=== PATIENT | male | born 1950 | race Caucasian/White ===

== ENCOUNTER 2022-10-16 09:21 | Emergency (ER) | payer MEDICARE, SELFPAY ==
[2022-10-16 09:19] VITALS: BP 105/64; PULSE 94; RESP 18; TEMP 37; O2SAT 100
[2022-10-16 09:46] VITALS: BP 97/75; O2SAT 100
[2022-10-16 10:02] LABS: Basophils Absolute Auto 0.1 K/mm3 (0.0-0.1); Basophils Percent Auto 0.6 % (0.2-1.2); Eosinophils Absolute Auto 0.2 K/mm3 (0-0.3); Hematocrit 35.9 % (42.0-52.0); Immature Granulocyte Absolute 0.03 K/mm3 (0.00-0.031); Immature Granulocyte Percent A 0.3 % (0-0.5); Lymphocytes Absolute Auto 1.55 K/mm3 (0.9-3.2); Lymphocytes Percent Auto 17.5 % (18.3-44.2); Mean Corpuscular HGB Conc 30.6 g/dl (32-36); Mean Platelet Volume 10.9 fl (7.4-10.4); Monocytes Absolute Auto 0.8 K/mm3 (0.1-0.6); Monocytes Percent Auto 9.1 % (2.6-8.5); Neutrophils Absolute Auto 6.2 K/mm3 (1.3-6.7); Neutrophils Percent Auto 70.5 % (45.5-73.1); Platelet Count Result 168 k/mm3 (150-375); Red Blood Count 4.08 M/mm3 (4.6-6.20); Red Cell Distribution Width 15.1 % (11.5-14.5); White Blood Count 8.9 K/mm3 (4.5-10.0)
[2022-10-16 10:15] LABS: Alanine Aminotransferase 16 U/L (6-50); Albumin Level 2.9 g/dL (3.5-5.1); Alkaline Phosphatase 68 U/L (38-126); Anion Gap 5 mmol/L (8-16); Aspartate Amino Transferase 22 U/L (17-59); Bilirubin,Total 0.5 mg/dL (0.2-1.3); Blood Urea Nitrogen 16 mg/dL (9-20); Calcium 7.8 mg/dL (8.4-10.2); Carbon Dioxide 30 mmol/L (22-30); Chloride 102 mmol/L (98-107); Estimated Glomerular Filt Rate > 60; Glucose 98 mg/dL (65-110); Potassium 4.3 mmol/L (3.4-5.0); Sodium 137 mmol/L (137-145)
[2022-10-16 10:16] VITALS: BP 115/75; O2SAT 100
[2022-10-16 10:17] LABS: INR 1.1; Prothrombin Time 13.7 Seconds (11.1-14.7)
--- NOTE | 2022-10-16 10:28 | ED.GIBLEED ---
HPI - GI Bleed General Chief complaint: GI Bleed Stated complaint: BLOOD IN STOOL Time Seen by Provider: 10/16/22 09:29 History of Present Illness HPI Narrative: Patient sent here from care home due to their concern that they saw some blood in his diaper, patient denies any complaints, he has no nausea or vomiting, abdominal pain or rectal pain. No lightheadedness or shortness of breath. Not on blood thinners. Related Data Allergies Allergy/AdvReac Type Severity Reaction Status Date / Time No Known Allergies Allergy Verified 10/16/22 09:32 Review of Systems Review of Systems: CONST: No fever. HEENT: No sore throat C/V: No chest pain RESP: No cough GI: Possible rectal bleeding : No dysuria. M/S: No joint pain. SKIN: No rash. NEURO: [No headache or focal numbness or weakness] PSYCH: [No depression] [facility] Past Medical History Medical History (Updated 10/16/22 @ 12:47 by Sharon Madrid MD) Hemorrhoids Exam Narrative: EXAMINATION OF ORGAN SYSTEMS/BODY AREAS: Constitutional: Vital signs per nursing GENERAL:[No acute distress, non-toxic appearing.] HEAD: Normal with no signs of head trauma. EYES: EOMI, conjunctiva normal ENT: Hearing grossly intact LUNGS: Nonlabored breathing. HEART: [Regular rate and rhythm] ABD: [Soft], [nontender to palpation] RECTAL: External hemorrhoids without any tenderness; grossly brown stool; hemoccult negative EXT: Normal range of motion SKIN: [No rashes or lesions.] NEURO: [Alert and oriented x 3. No gross focal sensory or strength deficits.] PSYCH: Normal affect Course Vital Signs Vital signs: Vital Signs Temperature 98.6 F 10/16/22 09:19 Pulse Rate 94 10/16/22 09:19 Respiratory Rate 18 10/16/22 09:19 Blood Pressure 105/64 10/16/22 09:19 Pulse Oximetry 100 10/16/22 09:19 Oxygen Delivery Nasal Cannula 10/16/22 09:19 Oxygen Flow Rate 4 10/16/22 09:19 Temperature 98.6 F 10/16/22 09:19 Pulse Rate 94 10/16/22 09:19 Respiratory Rate 18 10/16/22 09:19 Blood Pressure 102/64 10/16/22 10:31 Pulse Oximetry 100 10/16/22 10:16 Oxygen Delivery Nasal Cannula 10/16/22 09:19 Oxygen Flow Rate 4 10/16/22 09:19 MDM - GI Bleed MDM Narrative Medical decision making narrative: 72-year-old male presenting with possible rectal bleeding, vital signs stable here, he is well-appearing on exam, soft, nontender abdomen, I did perform a rectal exam and noted grossly brown stool, this is Hemoccult negative, I will obtain basic work-up to ensure stable hemoglobin and no issues with coagulation. These are within acceptable limits, patient has not had any further episodes of rectal bleeding in the emergency room, continues to be well-appearing here, I do feel he is stable for discharge. Discussed with patient and family at bedside and they are very comfortable with this plan, with return precautions and follow-up to GI as needed Lab Data 10/16/22 09:56 10/16/22 09:56 Labs: Lab Results 10/16/22 10/16/22 10/16/22 Range/Units 09:56 09:56 09:56 WBC 8.9 (4.5-10.0) K/mm3 RBC 4.08 L (4.6-6.20) M/mm3 Hgb 11.0 L (14.0-18.0) g/dL Hct 35.9 L (42.0-52.0) % MCV 88.0 (80-100) fl MCH 27.0 (26-34) pg MCHC 30.6 L (32-36) g/dl RDW 15.1 H (11.5-14.5) % Plt Count 168 (150-375) k/mm3 MPV 10.9 H (7.4-10.4) fl Immature Gran % (Auto) 0.3 (0-0.5) % Neut % (Auto) 70.5 (45.5-73.1) % Lymph % (Auto) 17.5 L (18.3-44.2) % Gregory % (Auto) 9.1 H (2.6-8.5) % Eos % (Auto) 2.0 (0-4.4) % Baso % (Auto) 0.6 (0.2-1.2) % Lymph # (Auto) 1.55 (0.9-3.2) K/mm3 Gregory # (Auto) 0.8 H (0.1-0.6) K/mm3 Eos # (Auto) 0.2 (0-0.3) K/mm3 Baso # (Auto) 0.1 (0.0-0.1) K/mm3 Abs Immat Gran (auto) 0.03 (0.00-0.031) K/mm3 Absolute Neuts (auto) 6.2 (1.3-6.7) K/mm3 Absolute Nucleated RBC 0.0 (0.0-0.012) K/mm3 Nucleated RBC % 0.0 (0.0-0.2) % PT 13.7
[2022-10-16 10:31] VITALS: BP 102/64
== END 2022-10-16 11:06 ==
PROVIDERS: Emergency Provider Emergency Medicine
DX: K64.9 Unspecified hemorrhoids (principal)
CPT/HCPCS: 36415; 80053; 85025; 85610; 85730; 99283

== ENCOUNTER 2022-10-22 15:07 | Inpatient (IN) | payer MEDICARE, SELFPAY ==
[2022-10-22] VITALS (21 sets, daily range): BP systolic 99–132; BP diastolic 69–88; PULSE 97–119; RESP 14–26; TEMP 36.6–37.2; O2SAT 94–100; BMI 26.2; BMI 26.7
--- NOTE | ~2022-10-22 | US_ITS ---
EXAMINATION: US venous doppler [facility] DATE: 10/23/2022 09:11 INDICATION: edema . TECHNIQUE: Grayscale images without and with compression and Doppler images of the bilateral lower ex tremity veins were obtained. COMPARISON: None FINDINGS: The right common femoral vein, profunda (deep) femoral vein, femoral vein, popliteal vein, peroneal v ein, posterior tibial veins, gastrocnemius vein, and greater saphenous vein are patent. The left common femoral vein, profunda femoral vein, femoral vein, popliteal vein, peroneal vein, pos terior tibial veins, gastrocnemius vein, and greater saphenous vein are patent. IMPRESSION: 1. Patent bilateral lower extremity veins. No evidence of deep venous thrombosis. Reviewed, dictated and finalized at location K. STILL OPERATOR IMPRESSION: 1. Patent bilateral lower extremity veins. No evidence of deep venous thrombos is.
--- NOTE | ~2022-10-22 | CT_ITS ---
EXAMINATION: CTA chest PE abdomen pel DATE: 10/22/2022 16:56 INDICATION: Shortness of breath, hypoxia and tachycardia. TECHNIQUE: Computed tomography (CT) pulmonary angiogram of the chest was performed with 100 mL Omnipa que-350 intravenous contrast. Additional 3D reconstructions utilizing coronal maximum intensity proje ction (MIP) were performed. CT of the abdomen and pelvis was performed with intravenous contrast util izing the same contrast bolus following a short delay. Automated exposure control and iterative recon struction technique were employed. The dose-length product was 1535.33 mGy-cm. COMPARISON: None FINDINGS: Chest: Good but suboptimal contrast opacification of the pulmonary arteries. There is mild streak artifact f rom dense contrast in the superior vena cava and right atrium. Mild to moderate scattered respiratory motion artifact most prominent at the lower lung zones which decreases sensitivity in some of the sm aller subsegmental pulmonary arteries. No pulmonary embolism. Moderate lower lung predominant emphyse ma. Small bilateral calcified pulmonary nodules along with calcified bilateral hilar and mediastinal lymph nodes consistent with old granulomatous disease. No pneumonia, pulmonary edema or pleural effus ion. Heart size is normal. Atherosclerotic coronary artery calcification. No pericardial effusion. Fu siform ascending thoracic aortic aneurysm measuring up to 4.6 cm in maximal diameter. No pathological ly enlarged thoracic lymphadenopathy. Mild thoracic spondylosis. Abdomen/pelvis: A few small low-attenuation hepatic cysts the largest measuring 12 mm. A few small hepatic and spleni c calcific lesions consistent with old granulomatous disease. This includes at a few calcified granul omata within 3 splenules along the caudal margin of the spleen. Gallbladder, pancreas, bilateral adre nal glands and right kidney are normal. 2.1 cm exophytic left renal cyst. Small bowel and appendix ar e normal. There is mild colonic diverticulosis with a sigmoid predominance. There is wall thickening and surrounding inflammatory stranding along a significant portion of the sigmoid colon which could b e related to diverticulitis but extends slightly further than typical and differential would also inc lude a focal colitis. There is suggestion of a 2 cm intraluminal enhancing polypoid lesion within the affected segment of sigmoid colon which also raises concern for potential malignancy. Bladder is nor mal. Bilateral small fat-containing inguinal hernias. Small umbilical hernia containing fat and a min imal amount of ascites. Additional trace amount of ascites in the pelvis. No abscess or free intraper itoneal gas. No pathologically enlarged abdominal or pelvic lymphadenopathy. Mild to moderate degener ative skeletal changes in the spine and bilateral hips and sacroiliac joints. IMPRESSION: 1. No pulmonary embolism or other acute cardiopulmonary disease. 2. Moderate emphysema. 3. Wall thickening and inflammatory scarring along the sigmoid colon which could be due to diverticul itis or focal colitis. There is however also suggestion enhancing intraluminal polypoid lesion which raises concern for malignancy. Consider further evaluation with colonoscopy when clinically appropria te. 4. Small fat-containing umbilical and bilateral inguinal hernias. Reviewed, dictated and finalized at location A. S DRAPER IMPRESSION: 1. No pulmonary embolism or other acute cardiopulmonary disease. 2. Moderate emphysema. 3. Wall thickening and inflammatory scarring along the sigmoid colon which coul d be due to diverticulitis or focal colitis. There is however also suggestion e nhancing intraluminal polypoid lesion which raises concern for malignancy. Cons ider further evaluation with colonoscopy when cli
--- NOTE | ~2022-10-22 | XR_ITS ---
XR chest 1V portable DATE: 10/23/2022 09:49 INDICATION: Labored breathing TECHNIQUE: Portable upright AP chest on October 23, 2022 at 0944 hours COMPARISON: October 22, 2022 CTA chest abdomen pelvis FINDINGS: Normal heart size. Mild aortic tortuosity and calcification. No hilar or mediastinal enlarg ement. No pulmonary infiltrate or consolidation, pleural effusion or pulmonary vascular congestion or pneumo thorax is detected. IMPRESSION: No active cardiopulmonary disease Reviewed, dictated and finalized at location A. SUPPRESSION CAPTAIN
--- NOTE | 2022-10-22 15:18 | ECG_ITS ---
Measurements Intervals [place] Rate: 115 P: 72 OH: 155 QRS: -72 QRSD: 88 T: 67 QT: 313 QTc: 433 Interpretive Statements SINUS TACHYCARDIA LOW QRS VOLTAGE [QRS DEFLECTION < 0.5/1.0 mV IN LIMB/CHEST LEADS] LEFT AXIS DEVIATION BASELINE ARTIFACT NO PREVIOUS ECG AVAILABLE FOR COMPARISON Electronically Signed On 10-23-2022 8:18:14 PRICE ECONOMIST by Phoebe Earl M.D.
[2022-10-22 15:39] LABS: Basophils Absolute Auto 0.1 K/mm3 (0.0-0.1); Basophils Percent Auto 0.8 % (0.2-1.2); Eosinophils Absolute Auto 0.3 K/mm3 (0-0.3); Hematocrit 39.5 % (42.0-52.0); Immature Granulocyte Absolute 0.04 K/mm3 (0.00-0.031); Immature Granulocyte Percent A 0.4 % (0-0.5); Lymphocytes Absolute Auto 2.47 K/mm3 (0.9-3.2); Mean Corpuscular HGB Conc 30.4 g/dl (32-36); Mean Corpuscular Hemoglobin 27.3 pg (26-34); Mean Corpuscular Volume 89.8 fl (80-100); Mean Platelet Volume 10.8 fl (7.4-10.4); Monocytes Absolute Auto 0.9 K/mm3 (0.1-0.6); Monocytes Percent Auto 8.7 % (2.6-8.5); Neutrophils Absolute Auto 6.5 K/mm3 (1.3-6.7); Neutrophils Percent Auto 63.1 % (45.5-73.1); Platelet Count Result 145 k/mm3 (150-375); White Blood Count 10.3 K/mm3 (4.5-10.0)
[2022-10-22 15:50] LABS: Alanine Aminotransferase 17 U/L (6-50); Albumin Level 2.9 g/dL (3.5-5.1); Alkaline Phosphatase 67 U/L (38-126); Anion Gap 2 mmol/L (8-16); Aspartate Amino Transferase 25 U/L (17-59); Bilirubin,Total 0.6 mg/dL (0.2-1.3); Blood Urea Nitrogen 18 mg/dL (9-20); Calcium 7.2 mg/dL (8.4-10.2); Carbon Dioxide 34 mmol/L (22-30); Chloride 100 mmol/L (98-107); Estimated CRCL calculation 55 ml/min; Estimated Glomerular Filt Rate > 60; Glucose 101 mg/dL (65-110); Lipase 85 U/L (23-300); Potassium 3.9 mmol/L (3.4-5.0); Sodium 136 mmol/L (137-145)
--- NOTE | 2022-10-22 15:58 | ED.GENADULT ---
HPI - General Adult General Chief complaint: Nausea/Vomiting/Diarrhea Stated complaint: Diarrhea/Dehydration Time Seen by Provider: 10/22/22 15:44 Source: patient, family and old records reviewed Mode of arrival: ambulatory Limitations: no limitations History of Present Illness HPI narrative: Patient is a 72-year-old male, with PMHx of dementia, who presents to the ED with report of diarrhea. Patient is currently residing at [facility]. Daughter at bedside assisted in providing information. She reports patient has had profuse watery diarrhea for the last 3 weeks. It has gotten to the point that it is affecting his daily life and patient has become very dehydrated and weak. She reports he has had numerous episodes per day. Has been intermittent rectal bleeding over the last 3 weeks, at times bright red, at times dark clots. Patient does have a history of hemorrhoids, but denies significant pain with bowel movements. Daughter reports the [facility] facility attempted to perform a stool culture, but they never heard the results of this. They were concerned for C. difficile. Patient denies recent antibiotics or foreign travel. Patient reports some lower abdominal pain, intermittent nausea, denies vomiting. Denies fever. Patient has also had increased difficulty breathing over the last week. Patient chronically wears 4 L nasal cannula. He has not had to increase this over the last week, but it was increased in August from 3 L when he was hospitalized. He denies any chest pain. Denies cough or congestion. Related Data Allergies Allergy/AdvReac Type Severity Reaction Status Date / Time No Known Allergies Allergy Verified 10/16/22 09:32 Review of Systems Review of Systems: CONSTITUTIONAL: Denies fever, chills, or sweats. ENT: Denies rhinorrhea, congestion, sore throat. CARDIOVASCULAR: Denies chest pain. RESPIRATORY: See HPI. GASTROINTESTINAL: See HPI. GENITOURINARY: Denies dysuria or hematuria. All systems reviewed & are unremarkable except as noted in HPI and below PMFSH Past Medical History Medical History (Updated 10/22/22 @ 20:01 by Estefania Lloyd PA-C) Chronic obstructive pulmonary disease Chronic respiratory failure with hypoxia, on home oxygen therapy Hemorrhoids Surgical History Surgical History (Updated 10/22/22 @ 18:35 by Estefania Lloyd PA-C) No pertinent past surgical history Social History Social History (Updated 10/22/22 @ 18:35 by Estefania Lloyd PA-C) Smoking status: Former smoker Exam Narrative: GENERAL: Elderly, non-toxic, in no acute distress. HEAD: Normocephalic, atraumatic. NECK: Supple. No adenopathy, no masses. RESPIRATORY: Airway patent, respirations mildly labored. Pursed lip breathing. On 4 L nasal cannula. Clear to auscultation bilaterally. No focal lung sounds. CARDIOVASCULAR: Tachycardic with regular rhythm without murmurs, rubs, or gallops. Peripheral pulses 2+ and equal bilaterally. ABDOMINAL: Soft, tenderness throughout epigastric region, left lower quadrant, right lower quadrant, no rebound, nondistended, no hepatosplenomegaly. Normoactive BS. RECTAL: Small external hemorrhoid noted. No signs of thrombosis. Normal tone. Stool slightly yellow and malodorous. Guaiac negative. MUSCULOSKELETAL: Moves all extremities. Strength/ROM intact without gross deformities. SKIN: Warm, dry, normal color. No rashes. NEURO: A&O X1, confused. Speech clear. Cranial nerves II-XII grossly intact. Steady gait. No ataxic movements. PSYCHIATRIC: Becomes easily agitated. Normal interaction. Course Vital Signs Vital signs: Vital Signs Temperature 97.8 F 10/22/22 15:14 Pulse Rate 119 H 10/22/22 15:14 Respiratory Rate 26 H 10/22/22 15:14 Blood Pressure 111/70 10/22/22 15:14 Pulse Oximetry 94 10/22/22 15:14 Oxygen Delivery Nasal Cannula 10/22/22 15:14 Oxygen Flow Rate 4 10/22/22 15:14 Temperature 97.8 F 10/22/22 15:1
[2022-10-22 16:27] LABS: Alveolar/Arterial O2 Gradient 62.8 mmHg; Base Excess ABG 5.2 mEq/l (+/-2.0); Carboxyhemoglobin 0.7 % THb (0-2.0); Fractional Inspired Oxygen 28 %; HCO3 ABG 29.1 mEq/l (22.0-26.0); Methemoglobin ABG 0.1 %THb (0-1.5); Oxygen Content ABG 17.1 %vol (16.0-22.0); Oxygen Saturation ABG 97.3 % (95.0-100.0); PCO2 ABG 40.1 mmHg (35.0-45.0); PO2 ABG 89.5 mmHg (80.0-100.0); Reduced Hemoglobin 3.2 %THb (0-5.0); Total Hemoglobin 12.6 g/dL (12.0-18.0); pH ABG 7.478 (7.350-7.450)
[2022-10-22 16:29] LABS: Device NASAL CANNULA; Modified Allen's Test Pass; Site Drawn LEFT BRACHIAL
[2022-10-22 17:44] LABS: Appearance Urine Clear (Clear); Bilirubin Urine Negative (Negative); Blood Urine Negative (Negative); Color Urine Yellow (Yellow); Glucose Urine UA Negative (Negative); Ketones Urine Negative (Negative); Leukocyte Esterase Ur Negative LEU/UL (Negative); Nitrate Urine Negative (Negative); Protein Urine Negative (Negative); pH Urine 6.5 (5.0-9.0)
[2022-10-22 17:47] LABS: Add Urine Microscopic? NO
[2022-10-22 18:22] LABS: NT Pro B Type Natriuretic Pept 280 pg/mL (19.9-100); Troponin I < 0.012 ng/mL (0.000-0.034)
[2022-10-22] MEDS: SODIUM CHLORIDE 0.9% IV 1,000 ML 999 ML IV CONT ×2 (18:31→18:32)
[2022-10-22 19:04] LABS: Lactic Acid Reflex 0.8 mmol/L (0.7-2.0)
[2022-10-22] MEDS: CALCIUM GLUC 1,000 MG/NS 50 ML 1,000 MG/50 ML BAG 100 MG IVPB (19:25)
[2022-10-22 19:28] LABS: Influenza A QL RT-PCR Negative (Negative); Influenza B QL RT-PCR Negative (Negative); SARS-CoV-2 RNA PCR Negative
--- NOTE | 2022-10-22 19:30 | PM.IMHP ---
H&P: HPI History of Present Illness Date/Time: 10/22/22 19:30 Chief Complaint: Diarrhea, possible dehydration. Narrative: This is a 72-year-old male with dementia, congestive heart failure, hypertension, COPD on chronic oxygen, diverticulosis, depression, and anxiety who presented to the emergency department from assisted living facility for evaluation of diarrhea and with concerns for dehydration. The patient is not a reliable historian and all of the following information was obtained via a review of his electronic medical records as well as discussions with staff. He has never been seen at this facility and his daughter has already left and I have not been able to get a hold of her. According to the triage note he has been having diarrhea for over 2 weeks and in fact he was seen emergency department on 10/16/2022 for evaluation of possible blood in his stool. Labs and vital signs were stable and his stool was Hemoccult negative on rectal exam. Since that time he continues to have profuse watery diarrhea and he has become more and more weak. He occasionally has difficulties holding his stool and it is frustrating and embarrassing to him. He has also noticed bright red blood in the toilet but not with every bowel movement. He denies fever, chills, sweats, and abdominal pain. He was afebrile on arrival to the emergency department. He has had some softer blood pressures at the lower end of normal but they have remained stable. He is tachycardic but that is improving with hydration. Labs were significant for a WBC of 10.3, hemoglobin 12.0, sodium 136, potassium 3.9, carbon dioxide 34, BUN 18, creatinine 1.10, lactic acid 0.8, total protein 6.0, albumin 2.9. A CT of the chest, abdomen, and pelvis was done to evaluate the diarrhea and shortness of breath which was evident on exam though it later came to fruition that he has chronic conversational dyspnea and pursed lip breathing. No pulmonary embolism or acute cardiopulmonary disease was noted. There was wall thickening inflammatory scarring along the sigmoid colon which could be diverticulitis or focal colitis however there are some findings that are suggestive of a polypoid lesion which raises concern for malignancy. He has been started on Zosyn for suspected colitis and he is being admitted in this setting for further treatment and GI consultation. Review of Systems Review of Systems: Unable to obtain accurately given his dementia. He does specifically deny fever, chills, sweats, chest pain, shortness a breath, and abdominal pain. [facility] Past Medical History Medical History (Updated 10/24/22 @ 14:28 by Rosanne Amaral PA-C) Chronic obstructive pulmonary disease Chronic respiratory failure with hypoxia, on home oxygen therapy Congestive heart failure Dementia Depression with anxiety Hemorrhoids Hyperlipidemia Hypertension Surgical History Surgical History No pertinent past surgical history Family History Family History Father Lung cancer Mother Liver cancer Colon cancer Social History Social History (Updated 10/24/22 @ 14:28 by Rosanne Amaral PA-C) Social History: Surrogate medical decision maker: Fátima Osman, eddie. Code status: Full code. Smoking status: Former smoker Alcohol intake: never Substance use: never Additional living arrangements comments: Memory care. Spiritual care concerns: No Meds Home Medications and Allergies Home Medications Medication Instructions Recorded Confirmed Type allopurinol 100 mg tablet 50 mg PO DAILY 10/22/22 10/22/22 History arformoterol 15 mcg/2 mL solution 15 mcg inhalation DAILY 10/22/22 10/22/22 History for nebulization (Brovana) budesonide 0.5 mg/2 mL suspension 0.5 mg inhalation BID 10/22/22 10/22/22 History for nebulization cetirizine 10 mg tablet (Zyrtec) 10 mg PO DAILY 10/22/2210/13
[2022-10-23] VITALS (13 sets, daily range): BP systolic 115–131; BP diastolic 69–88; PULSE 86–110; RESP 16–22; TEMP 36.6–36.8; O2SAT 94–100
[2022-10-23 05:46] LABS: Hematocrit 34.7 % (42.0-52.0); Hemoglobin 10.3 g/dL (14.0-18.0); Immature Platelet Fraction Pct 4.7 % (0.9-11.2); Mean Corpuscular HGB Conc 29.7 g/dl (32-36); Mean Corpuscular Hemoglobin 26.2 pg (26-34); Mean Corpuscular Volume 88.3 fl (80-100); Mean Platelet Volume 10.7 fl (7.4-10.4); Platelet Count Result 102 k/mm3 (150-375); Red Blood Count 3.93 M/mm3 (4.6-6.20); Red Cell Distribution Width 15.1 % (11.5-14.5); White Blood Count 8.9 K/mm3 (4.5-10.0)
[2022-10-23 05:54] LABS: Alanine Aminotransferase 16 U/L (6-50); Albumin Level 2.6 g/dL (3.5-5.1); Alkaline Phosphatase 64 U/L (38-126); Anion Gap 0 mmol/L (8-16); Aspartate Amino Transferase 22 U/L (17-59); Bilirubin,Total 0.5 mg/dL (0.2-1.3); Blood Urea Nitrogen 15 mg/dL (9-20); Calcium 7.3 mg/dL (8.4-10.2); Carbon Dioxide 31 mmol/L (22-30); Chloride 103 mmol/L (98-107); Estimated CRCL calculation 55 ml/min; Estimated Glomerular Filt Rate > 60; Glucose 79 mg/dL (65-110); Potassium 3.7 mmol/L (3.4-5.0); Sodium 134 mmol/L (137-145)
[2022-10-23] MEDS: BUDESONIDE RESPULE NEB 0.5 MG/2 ML AMP INHALATION ×2 (07:14→19:45)
[2022-10-23 08:02] LABS: Toxigenic C. Diff POSITIVE (NEGATIVE)
--- NOTE | 2022-10-23 08:02 | PM.IMPN ---
Progress Note: A&P Assessment and Plan (1) Clostridium difficile colitis: Code(s): A04.72 - Enterocolitis due to Clostridium difficile, not specified as recurrent Status: Acute Assessment and Plan: Patient presented with watery, loose stool for approximately 3 weeks. He tested positive for cdiff on admission. CT abd/pelvis shows wall thickening and inflammatory scarring along the sigmoid colon suspicious for focal colitis versus diverticulitis. He was started on Zosyn IV therapy for concerns of diverticulitis/colitis. Stop Zosyn 10/23/22 due to cdiff+ Start Vancomycin 125 mg PO Q6 hours x 10 days. Isolation precautions. Start banatrol plus supplement. Clear liquid diet advance as tolerated to low residue diet Continue IV fluids until taking good PO. (2) Colonic mass: Code(s): K63.89 - Other specified diseases of intestine Status: Acute Assessment and Plan: CT abd/pelvis with enhancing intraluminal polypoid lesion in the sigmoid colon concerning for malignancy. He will need colonoscopy when cdiff infection resolved. He is refusing at this time. (3) COPD (chronic obstructive pulmonary disease): Code(s): J44.9 - Chronic obstructive pulmonary disease, unspecified Status: Chronic Assessment and Plan: Acute on chronic COPD. c/o increased shortness of breath and wheezing. No sputum at this time. Continue duonebs Q6 hrs and budesonide nebs Q12 hours. Hold steroids and antibiotics for now given above. Chest x-ray negative for acute pulmonary disease. (4) Chronic respiratory failure with hypoxia, on home O2 therapy: Code(s): J96.11 - Chronic respiratory failure with hypoxia; Z99.81 - Dependence on supplemental oxygen Status: Chronic Assessment and Plan: chronic, on 4L home O2 NC. No increased supplemental O2 needs. (5) Generalized weakness: Code(s): R53.1 - Weakness Status: Acute Assessment and Plan: Secondary to cdiff colitis and dehydration. PT/OT consulted. (6) Encephalopathy: Code(s): G93.40 - Encephalopathy, unspecified Status: Chronic Assessment and Plan: Daughter reports increased forgetfulness, anxiety and memory loss since July/August of last year. Check B12, folate, vitamin D, and TSH with reflex. Plan CODE STATUS: FULL CODE Discharge disposition: He will likely need SNF placement at discarge. Time Spent With Patient Time: 35 minutes time spent reviewing medical chart, lab work, imaging, patient assessment, and developing treatment plan. All patient and family questions answered to the best of my ability. Subjective Date/time seen: 10/23/22 08:02 Patient is a 72-year-old male with dementia, congestive heart failure, hypertension, COPD on chronic oxygen, diverticulosis, depression, and anxiety presented to the emergency department from assisted living facility for evaluation of diarrhea x 3 weeks and with concerns for dehydration.?He is cdiff positive. Patient found lying in bed. He was short of breath early this morning and nursing reported observation of abdominal breathing. He wears 4L chronic home oxygen. He reports his breathing is better after nebulizer treatments. No cough or sputum. His abdomen is mildly tender and has had 1 stool since admission. Review of Systems Review of Systems: All systems reviewed & are unremarkable except as noted in HPI and below Exam Narrative: General: Moderately ill-appearing older adult male lying in bed. O2 4L NC. HEENT: Normocephalic. PERRL, EOMI. Sclera anicteric. mucous membranes pink and dry. Tongue midline. Neck: Supple. No JVD. Respiratory: Occasional pursed lip breathing and conversational dyspnea. Lung sounds are diminished throughout without wheezing noted. No intercostal muscle use. Cardiovascular: Normal S1-S2 regular rate and rhythm. No murmurs, gallops or rubs. Gastrointestinal: Abdomen is soft and protube
[2022-10-23] MEDS: LORATADINE 10 MG TABLET PO (09:40)
[2022-10-23] MEDS: allopurinoL 50 MG TABLET PO (09:40)
[2022-10-23] MEDS: ROSUVASTATIN 10 MG TABLET 20 MG PO (09:40)
[2022-10-23] MEDS: MONTELUKAST SODIUM 10 MG TABLET PO (09:40)
[2022-10-23] MEDS: VANCOMYCIN ORAL 125 MG/2.5 ML SYRUP PO ×3 (13:16→22:58)
--- NOTE | 2022-10-23 15:35 | PCOTNOTE ---
Attempted occupational therapy evaluation, patient was very confused and refused to engage in therapy at this time. Daughter was not present and RN reported he typically does better when she is in the room. Following.
[2022-10-23] MEDS: ALBUTEROL SULFATE NEB 2.5 MG/3 ML INH INHALATION (19:45)
[2022-10-23] MEDS: IPRATROPIUM BR 0.02% INH SOLN 0.5 MG/2.5 ML VIAL INHALATION (19:45)
[2022-10-23] MEDS: LORazepam (*CRX) 0.5 MG TABLET PO (20:51)
[2022-10-24] VITALS (15 sets, daily range): BP systolic 97–125; BP diastolic 60–73; PULSE 83–96; RESP 16–20; TEMP 36.5–37.1; O2SAT 94–100
[2022-10-24] MEDS: VANCOMYCIN ORAL 125 MG/2.5 ML SYRUP PO ×3 (05:06→17:46)
[2022-10-24 05:26] LABS: Basophils Absolute Auto 0.1 K/mm3 (0.0-0.1); Basophils Percent Auto 0.8 % (0.2-1.2); Eosinophils Absolute Auto 0.3 K/mm3 (0-0.3); Hematocrit 35.6 % (42.0-52.0); Hemoglobin 10.7 g/dL (14.0-18.0); Immature Granulocyte Absolute 0.03 K/mm3 (0.00-0.031); Immature Granulocyte Percent A 0.4 % (0-0.5); Lymphocytes Absolute Auto 1.72 K/mm3 (0.9-3.2); Lymphocytes Percent Auto 23.1 % (18.3-44.2); Mean Corpuscular HGB Conc 30.1 g/dl (32-36); Mean Corpuscular Hemoglobin 26.8 pg (26-34); Mean Corpuscular Volume 89.2 fl (80-100); Mean Platelet Volume 10.9 fl (7.4-10.4); Monocytes Absolute Auto 0.7 K/mm3 (0.1-0.6); Monocytes Percent Auto 9.7 % (2.6-8.5); Neutrophils Absolute Auto 4.6 K/mm3 (1.3-6.7); Platelet Count Result 100 k/mm3 (150-375); Red Blood Count 3.99 M/mm3 (4.6-6.20); Red Cell Distribution Width 15.2 % (11.5-14.5); White Blood Count 7.5 K/mm3 (4.5-10.0)
[2022-10-24 05:42] LABS: Alanine Aminotransferase 16 U/L (6-50); Albumin Level 2.6 g/dL (3.5-5.1); Alkaline Phosphatase 67 U/L (38-126); Anion Gap 1 mmol/L (8-16); Aspartate Amino Transferase 23 U/L (17-59); Bilirubin,Total 0.6 mg/dL (0.2-1.3); Blood Urea Nitrogen 15 mg/dL (9-20); CRP 2.6 mg/dL (<1.0); Calcium 7.6 mg/dL (8.4-10.2); Carbon Dioxide 32 mmol/L (22-30); Chloride 105 mmol/L (98-107); Estimated CRCL calculation 55 ml/min; Estimated Glomerular Filt Rate > 60; Glucose 77 mg/dL (65-110); Potassium 3.9 mmol/L (3.4-5.0); Sodium 138 mmol/L (137-145)
[2022-10-24 05:52] LABS: Iron 31 ug/dL (49-181)
[2022-10-24 06:09] LABS: Percent Iron Saturation 17 % (20-50)
[2022-10-24 06:40] LABS: Folic Acid 15.7 ng/mL (2.76->20)
[2022-10-24] MEDS: allopurinoL 50 MG TABLET PO (09:15)
[2022-10-24] MEDS: LORATADINE 10 MG TABLET PO (09:15)
[2022-10-24] MEDS: ROSUVASTATIN 10 MG TABLET 20 MG PO (09:16)
[2022-10-24] MEDS: MONTELUKAST SODIUM 10 MG TABLET PO (09:16)
--- NOTE | 2022-10-24 09:34 | PM.IMPN ---
Progress Note: A&P Assessment and Plan (1) Clostridium difficile colitis: Code(s): A04.72 - Enterocolitis due to Clostridium difficile, not specified as recurrent Status: Acute Assessment and Plan: Patient presented with watery, loose stool for approximately 3 weeks. He tested positive for cdiff on admission. CT abd/pelvis shows wall thickening and inflammatory scarring along the sigmoid colon suspicious for focal colitis versus diverticulitis. He was started on Zosyn IV therapy for concerns of diverticulitis/colitis. Stop Zosyn 10/23/22 due to cdiff+ Continue Vancomycin 125 mg PO Q6 hours x 10 days. antibiotic day 2 Isolation precautions. Start banatrol plus and ensure enlive supplement. low residue diet (2) Colonic mass: Code(s): K63.89 - Other specified diseases of intestine Status: Acute Assessment and Plan: CT abd/pelvis with enhancing intraluminal polypoid lesion in the sigmoid colon concerning for malignancy. He will need colonoscopy when cdiff infection resolved. He is refusing at this time. (3) COPD (chronic obstructive pulmonary disease): Code(s): J44.9 - Chronic obstructive pulmonary disease, unspecified Status: Chronic Assessment and Plan: Acute on chronic COPD. c/o increased shortness of breath and wheezing. No sputum at this time. Continue duonebs Q6 hrs and budesonide nebs Q12 hours. Hold steroids and antibiotics for now given above. Chest x-ray negative for acute pulmonary disease. (4) Chronic respiratory failure with hypoxia, on home O2 therapy: Code(s): J96.11 - Chronic respiratory failure with hypoxia; Z99.81 - Dependence on supplemental oxygen Status: Chronic Assessment and Plan: chronic, on 4L home O2 NC. No increased supplemental O2 needs. (5) Generalized weakness: Code(s): R53.1 - Weakness Status: Acute Assessment and Plan: Secondary to cdiff colitis and dehydration. PT/OT consulted. (6) Encephalopathy: Code(s): G93.40 - Encephalopathy, unspecified Status: Chronic Assessment and Plan: Daughter reports increased forgetfulness, anxiety and memory loss since July/August of last year. Check B12, folate, vitamin D, and TSH with reflex. Vitamin D 19. start D3 supplement Folate within normal limits. B12 257 start IM cyanocobolamin 1000 mcg daily x 7 days, then once weekly x 4 weeks, then monthly. serum iron 31, saturation 17% given venofer 200 mg IV daily. then start oral supplement. TSH within normal limits. (7) Anemia: Qualifiers: Anemia type: iron deficiency Iron deficiency anemia type: inadequate dietary iron intake Qualified Code(s): D50.8 - Other iron deficiency anemias Code(s): D64.9 - Anemia, unspecified Status: Chronic Assessment and Plan: chronic, multifactorial from low B12 and iron deficiency. Hgb 10. Continue supplements as above. (8) Hypertension: Code(s): I10 - Essential (primary) hypertension Status: Chronic Assessment and Plan: chronic, BP 116/73 to 100/62. Resume lowered dose diltiazem with hold parameters to prevent hypotension. (9) Hyperlipidemia: Code(s): E78.5 - Hyperlipidemia, unspecified Status: Chronic Assessment and Plan: Chronic, continue statin. Plan CODE STATUS: FULL CODE Discharge disposition: From assisted living facility. PT/OT eval ordered. Probable discharge in 1-2 days. Time Spent With Patient Time: 30 min time spent reviewing chart, imaging, labs, patient assessment, monitoring response to treatment plan and educating patient and family. Subjective Date/time seen: 10/24/22 09:34 Interval history: Patient is a 72-year-old male with dementia, congestive heart failure, hypertension, COPD on chronic oxygen, diverticulosis, depression, and anxiety presented to the emergency department from assisted living facility for evaluation o
[2022-10-24] MEDS: IPRATROPIUM BR 0.02% INH SOLN 0.5 MG/2.5 ML VIAL INHALATION ×3 (10:00→20:34)
[2022-10-24] MEDS: BUDESONIDE RESPULE NEB 0.5 MG/2 ML AMP INHALATION ×2 (10:00→20:34)
[2022-10-24] MEDS: ALBUTEROL SULFATE NEB 2.5 MG/3 ML INH INHALATION ×3 (10:00→20:34)
[2022-10-24] MEDS: IRON SUCROSE COMPLEX 200 MG in SODIUM CHLORIDE 0.9% IV 50 ML 120 MG IVPB (11:03)
[2022-10-25] VITALS (16 sets, daily range): BP systolic 112–125; BP diastolic 60–79; PULSE 74–98; RESP 16–20; TEMP 36.6–36.9; O2SAT 92–100
[2022-10-25] MEDS: VANCOMYCIN ORAL 125 MG/2.5 ML SYRUP PO ×5 (00:30→23:19)
[2022-10-25 05:04] LABS: Hematocrit 33.9 % (42.0-52.0); Hemoglobin 10.2 g/dL (14.0-18.0); Immature Platelet Fraction Pct 4.5 % (0.9-11.2); Mean Corpuscular HGB Conc 30.1 g/dl (32-36); Mean Corpuscular Hemoglobin 27.1 pg (26-34); Mean Corpuscular Volume 89.9 fl (80-100); Mean Platelet Volume 10.3 fl (7.4-10.4); Platelet Count Result 85 k/mm3 (150-375); Red Blood Count 3.77 M/mm3 (4.6-6.20); White Blood Count 6.8 K/mm3 (4.5-10.0)
[2022-10-25 05:25] LABS: Anion Gap 1 mmol/L (8-16); Blood Urea Nitrogen 14 mg/dL (9-20); Calcium 7.4 mg/dL (8.4-10.2); Carbon Dioxide 32 mmol/L (22-30); Chloride 106 mmol/L (98-107); Estimated CRCL calculation 55 ml/min; Estimated Glomerular Filt Rate > 60; Glucose 85 mg/dL (65-110); Magnesium 2.1 mg/dL (1.6-2.3); Potassium 4.1 mmol/L (3.4-5.0); Sodium 139 mmol/L (137-145)
[2022-10-25] MEDS: MONTELUKAST SODIUM 10 MG TABLET PO (08:02)
[2022-10-25] MEDS: FERROUS SULFATE DRIED 142 MG TABCR PO (08:02)
[2022-10-25] MEDS: ROSUVASTATIN 10 MG TABLET 20 MG PO (08:02)
[2022-10-25] MEDS: CHOLECALCIFEROL 1,000 UNITS TABLET 2000 UNITS PO (08:02)
[2022-10-25] MEDS: allopurinoL 50 MG TABLET PO (08:03)
[2022-10-25] MEDS: LORATADINE 10 MG TABLET PO (08:03)
[2022-10-25] MEDS: IPRATROPIUM BR 0.02% INH SOLN 0.5 MG/2.5 ML VIAL INHALATION ×3 (08:22→20:11)
[2022-10-25] MEDS: ALBUTEROL SULFATE NEB 2.5 MG/3 ML INH INHALATION ×3 (08:22→20:11)
[2022-10-25] MEDS: BUDESONIDE RESPULE NEB 0.5 MG/2 ML AMP INHALATION ×2 (08:22→20:11)
[2022-10-25] MEDS: CYANOCOBALAMIN INJ 1,000 MCG/ML VIAL 1000 MCG IM (09:06)
[2022-10-25 11:32] LABS: Fractional Inspired Oxygen 28 %; HCO3 VBG 33.6 mEq/l (24.0-30.0); PCO2 VBG 59.6 mmHg (42.0-48.0); PO2 VBG 32.4 mmHg (35.0-45.0); pH VBG 7.369 (7.300-7.400)
[2022-10-25 11:34] LABS: Device NASAL CANNULA
--- NOTE | 2022-10-25 16:12 | PM.IMPN ---
Progress Note: A&P Assessment and Plan (1) Clostridium difficile colitis: Code(s): A04.72 - Enterocolitis due to Clostridium difficile, not specified as recurrent Status: Acute Assessment and Plan: Patient presented with watery, loose stool for approximately 3 weeks. He tested positive for cdiff on admission. CT abd/pelvis shows wall thickening and inflammatory scarring along the sigmoid colon suspicious for focal colitis versus diverticulitis. He was started on Zosyn IV therapy for concerns of diverticulitis/colitis. Stop Zosyn 10/23/22 due to cdiff+ Continue Vancomycin 125 mg PO Q6 hours x 10 days. antibiotic day 3 Isolation precautions. continue banatrol plus and ensure enlive supplement. low residue diet Improving (2) Colonic mass: Code(s): K63.89 - Other specified diseases of intestine Status: Acute Assessment and Plan: CT abd/pelvis with enhancing intraluminal polypoid lesion in the sigmoid colon concerning for malignancy. He will need colonoscopy when cdiff infection resolved. He is refusing at this time. (3) COPD (chronic obstructive pulmonary disease): Code(s): J44.9 - Chronic obstructive pulmonary disease, unspecified Status: Chronic Assessment and Plan: Acute on chronic COPD. c/o increased shortness of breath and wheezing. No sputum at this time. Continue duonebs Q6 hrs and budesonide nebs Q12 hours. Hold steroids and antibiotics for now given above. Chest x-ray negative for acute pulmonary disease. VBG shows pH 7.37, pCO2 59, HCO2 33.6. Titrate O2 90-94% to decreased hypercapnia. Check apnea link (4) Chronic respiratory failure with hypoxia, on home O2 therapy: Code(s): J96.11 - Chronic respiratory failure with hypoxia; Z99.81 - Dependence on supplemental oxygen Status: Chronic Assessment and Plan: chronic, on 4L home O2 NC. No increased supplemental O2 needs. VBG with pCO2 59 showing hypercapnia. Titrate O2 90-94% patient now on 2L with normal pH hypercapnia appears chronic. (5) Generalized weakness: Code(s): R53.1 - Weakness Status: Acute Assessment and Plan: Secondary to cdiff colitis and dehydration. PT/OT consulted. (6) Encephalopathy: Code(s): G93.40 - Encephalopathy, unspecified Status: Chronic Assessment and Plan: Daughter reports increased forgetfulness, anxiety and memory loss since July/August of last year. Check B12, folate, vitamin D, and TSH with reflex. Vitamin D 19. start D3 supplement Folate within normal limits. B12 257 start IM cyanocobolamin 1000 mcg daily x 7 days, then once weekly x 4 weeks, then monthly. serum iron 31, saturation 17% given venofer 200 mg IV daily. then start oral supplement. TSH within normal limits. (7) Anemia: Qualifiers: Anemia type: iron deficiency Iron deficiency anemia type: inadequate dietary iron intake Qualified Code(s): D50.8 - Other iron deficiency anemias Code(s): D64.9 - Anemia, unspecified Status: Chronic Assessment and Plan: chronic, multifactorial from low B12 and iron deficiency. Hgb 10. Continue supplements as above. (8) Hypertension: Code(s): I10 - Essential (primary) hypertension Status: Chronic Assessment and Plan: chronic, BP 116/73 to 100/62. Resume lowered dose diltiazem with hold parameters to prevent hypotension. (9) Hyperlipidemia: Code(s): E78.5 - Hyperlipidemia, unspecified Status: Chronic Assessment and Plan: Chronic, continue statin. Plan CODE STATUS: FULL CODE Discharge disposition: From assisted living facility. PT/OT eval ordered. Probable discharge in 1-2 days. Time Spent With Patient Time: 30 min time spent reviewing chart, imaging, labs, patient assessment, monitoring response to treatment plan and educating patient on plan of care. Subjective Date/time seen: 10/25/22 16:12 Interval
[2022-10-26 03:14] VITALS: BP 130/80; PULSE 90; RESP 20; TEMP 36.6; O2SAT 99
[2022-10-26] MEDS: VANCOMYCIN ORAL 125 MG/2.5 ML SYRUP PO (06:01)
--- NOTE | 2022-10-26 07:11 | PM.DS ---
DS: Admitting Diagnosis Discharge Date 10/26/2022 0953 Admitting Diagnosis Colitis Abnormal computed tomography of abdomen and pelvis Chronic respiratory failure with hypoxia, on home O2 therapy Generalized weakness DS: Discharge Diagnosis Discharge Diagnosis (1) Clostridium difficile colitis: Code(s): A04.72 - Enterocolitis due to Clostridium difficile, not specified as recurrent Status: Acute (2) Colonic mass: Code(s): K63.89 - Other specified diseases of intestine Status: Acute (3) COPD (chronic obstructive pulmonary disease): Qualifiers: COPD type: unspecified COPD Qualified Code(s): J44.9 - Chronic obstructive pulmonary disease, unspecified Code(s): J44.9 - Chronic obstructive pulmonary disease, unspecified Status: Chronic (4) Chronic respiratory failure with hypoxia, on home O2 therapy: Code(s): J96.11 - Chronic respiratory failure with hypoxia; Z99.81 - Dependence on supplemental oxygen Status: Chronic (5) Generalized weakness: Code(s): R53.1 - Weakness Status: Acute (6) Encephalopathy: Code(s): G93.40 - Encephalopathy, unspecified Status: Chronic (7) Anemia: Qualifiers: Anemia type: iron deficiency Iron deficiency anemia type: inadequate dietary iron intake Qualified Code(s): D50.8 - Other iron deficiency anemias Code(s): D64.9 - Anemia, unspecified Status: Chronic (8) Hypertension: Qualifiers: Hypertension type: primary hypertension Qualified Code(s): I10 - Essential (primary) hypertension Code(s): I10 - Essential (primary) hypertension Status: Chronic (9) Hyperlipidemia: Qualifiers: Hyperlipidemia type: mixed hyperlipidemia Qualified Code(s): E78.2 - Mixed hyperlipidemia Code(s): E78.5 - Hyperlipidemia, unspecified Status: Chronic DS: Summary Hospital Course Reason for hospitalization: diarrhea Hospital Course: Oliver Abad is a 72-year-old male with dementia, congestive heart failure, hypertension, COPD on chronic oxygen, diverticulosis, depression, and anxiety who presented to the emergency department from assisted living facility for evaluation of diarrhea x 3 weeks and with concerns for dehydration.?He tested positive for cdiff on admission and was admitted to the medical floor for further management. (1) Clostridium difficile colitis: Patient presented with watery, loose stool for approximately 3 weeks. He tested positive for cdiff on admission. CT abd/pelvis shows wall thickening and inflammatory scarring along the sigmoid colon suspicious for focal colitis versus diverticulitis. He was started on Zosyn IV therapy for concerns of diverticulitis/colitis prior to cdiff test results. Stopped Zosyn 10/23/22 due to cdiff+ test. Started Vancomycin 125 mg PO Q6 hours x 10 days on 10/23/22 Isolation precautions maintained. treated with banatrol plus and ensure enlive supplement.? low residue diet (2) Colonic mass: CT abd/pelvis with enhancing intraluminal polypoid lesion in the sigmoid colon concerning for malignancy. He will need colonoscopy when cdiff infection resolved. He is refusing at this time. (3) COPD (chronic obstructive pulmonary disease): Acute on chronic COPD. c/o increased shortness of breath and wheezing. No sputum at this time. treated with duonebs Q6 hrs and budesonide nebs Q12 hours. Held steroids and antibiotics for now given absence of wheezing and sputum quantity or color changes. Chest x-ray negative for acute pulmonary disease. VBG shows pH 7.37, pCO2 59, HCO2 33.6. Titrate O2 90-94% to decreased hypercapnia. apnea link ordered but was not applied prior to discharge. Outpatient sleep study recommended. (4) Chronic respiratory failure with hypoxia, on home O2 therapy: ?Code(s): J96.11 - Chronic respiratory failure with hypoxia; Z99.81 - Dependence on supplemental oxygen ?Status:?Chronic ? ? ?
[2022-10-26] MEDS: ROSUVASTATIN 10 MG TABLET 20 MG PO (08:16)
[2022-10-26 08:17] VITALS: O2SAT 98
[2022-10-26] MEDS: LORATADINE 10 MG TABLET PO (08:17)
[2022-10-26] MEDS: FERROUS SULFATE DRIED 142 MG TABCR PO (08:17)
[2022-10-26] MEDS: MONTELUKAST SODIUM 10 MG TABLET PO (08:17)
[2022-10-26] MEDS: CHOLECALCIFEROL 1,000 UNITS TABLET 2000 UNITS PO (08:17)
[2022-10-26] MEDS: allopurinoL 50 MG TABLET PO (08:17)
[2022-10-26] MEDS: CYANOCOBALAMIN INJ 1,000 MCG/ML VIAL 1000 MCG IM (08:22)
[2022-10-26 08:29] VITALS: BP 111/67; PULSE 98; RESP 14; O2SAT 99
[2022-10-26 09:50] VITALS: PULSE 90; RESP 18; O2SAT 98
[2022-10-26] MEDS: BUDESONIDE RESPULE NEB 0.5 MG/2 ML AMP INHALATION (09:50)
[2022-10-26] MEDS: ALBUTEROL SULFATE NEB 2.5 MG/3 ML INH INHALATION (09:50)
[2022-10-26] MEDS: IPRATROPIUM BR 0.02% INH SOLN 0.5 MG/2.5 ML VIAL INHALATION (09:50)
[2022-10-26 10:00] VITALS: PULSE 88; RESP 18
== END 2022-10-26 10:55 | DRG 372 ==
LOC: ANHED 20:01 → ANH2MED 21:09
PROVIDERS: Emergency Medicine; Physician Assistant; Admitting Provider Internal Medicine; Emergency Provider Physician Assistant; Visit Provider Nurse Practitioner Family
DX: A04.72 Enterocolitis due to Clostridium difficile, not specified as recurrent (principal); G93.40 Encephalopathy, unspecified; J96.11 Chronic respiratory failure with hypoxia; D50.8 Other iron deficiency anemias; E86.0 Dehydration; E78.2 Mixed hyperlipidemia; F03.90 Unspecified dementia, unspecified severity, without behavioral disturbance, psychotic disturbance, mood disturbance, and anxiety; F32.A Depression, unspecified; F41.9 Anxiety disorder, unspecified; I10 Essential (primary) hypertension; J44.9 Chronic obstructive pulmonary disease, unspecified; K64.9 Unspecified hemorrhoids; K63.89 Other specified diseases of intestine; K57.90 Diverticulosis of intestine, part unspecified, without perforation or abscess without bleeding; R93.5 Abnormal findings on diagnostic imaging of other abdominal regions, including retroperitoneum; R53.1 Weakness; Z20.822 Contact with and (suspected) exposure to COVID-19; Z99.81 Dependence on supplemental oxygen; Z87.891 Personal history of nicotine dependence
CPT/HCPCS: 36415; 36600; 71045; 71275; 74177; 80048; 80053; 81003; 82306; 82375; 82607; 82728; 82746; 82803; 82805; 83050; 83540; 83550; 83605; 83690; 83735; 83880; 84443; 84484; 85025; 85027; 85055; 86140; 87045; 87427; 87493; 87636; 93005; 93970; 94640; 96361; 96365; 96366; 96367; 97161; 97165; 99285; A9270; G0378; J0610; J1756; J2543; J3420; J7030; Q9967

== ENCOUNTER 2022-11-17 07:21 | Emergency (ER) | payer MEDICARE, SELFPAY ==
[2022-11-17 07:32] VITALS: BP 133/86; PULSE 102; RESP 20; O2SAT 100
--- NOTE | 2022-11-17 07:36 | ED.GENADULT ---
HPI - General Adult General Chief complaint: GI Bleed Stated complaint: blood in stool Time Seen by Provider: 11/17/22 07:31 Source: patient and family Limitations: no limitations History of Present Illness HPI narrative: 72 years old white male came from assisting living complaining of blood in the stool patient does not know the color of the blood, assisting living did not give more details about what kind of blood. History of C. difficile in the last few weeks, finished 1 course of vancomycin, patient reported that his diarrhea never got better still having a lot of diarrhea a day, does not know how many. History of COPD on chronic 3 L oxygen. Patient is DNR. Daughter at the bedside , patient looks very anxious Related Data Home Medications Medication Instructions Recorded Confirmed allopurinol 100 mg tablet 50 mg PO DAILY 10/22/22 10/22/22 arformoterol 15 mcg/2 mL solution 15 mcg inhalation DAILY 10/22/22 10/22/22 for nebulization (Brovana) budesonide 0.5 mg/2 mL suspension 0.5 mg inhalation BID 10/22/22 10/22/22 for nebulization cetirizine 10 mg tablet (Zyrtec) 10 mg PO DAILY 10/22/22 10/22/22 montelukast 10 mg tablet 10 mg PO DAILY 10/22/22 10/22/22 (Singulair) rosuvastatin 20 mg tablet (Crestor) 20 mg PO DAILY 10/22/22 10/22/22 Allergies Allergy/AdvReac Type Severity Reaction Status Date / Time No Known Allergies Allergy Verified 10/22/22 22:06 Review of Systems Review of Systems: All systems reviewed & are unremarkable except as noted in HPI and below PMFSH Past Medical History Medical History Chronic obstructive pulmonary disease Chronic respiratory failure with hypoxia, on home oxygen therapy Congestive heart failure Dementia Depression with anxiety Hemorrhoids Hyperlipidemia Hypertension Surgical History Surgical History No pertinent past surgical history Family History Family History Father Lung cancer Mother Liver cancer Colon cancer Social History Social History Social History: Surrogate medical decision maker: Fátima Osman, daughter. Code status: Full code. Smoking status: Former smoker Alcohol intake: never Substance use: never Additional living arrangements comments: Memory care. Spiritual care concerns: No Exam Narrative: General appearance: Well-developed, well-nourished, severely anxious and restless Skin: Normal color Head: Normocephalic, nontraumatic Eyes: Clear conjunctiva ENT: Oropharynx normal, ears normal, nose normal Neck: Supple, nontender Chest and respiratory: Airway patent, no respiratory distress, no accessory muscle use Heart: Regular rate/rhythm Abdomen: Soft, mild diffuse tenderness, no organomegaly, normal bowel sounds rectal exam showed hemorrhoids, diffusely tender, yellow liquid stool, guaiac positive Vascular: Normal peripheral pulses, normal capillary refill. Musculoskeletal: Normal range of motion, nontender back Neurologic: Alert and oriented his name and age only, severe hearing impairment Course Vital Signs Vital signs: Vital Signs Pulse Rate 102 H 11/17/22 07:32 Respiratory Rate 20 11/17/22 07:32 Blood Pressure 133/86 11/17/22 07:32 Pulse Oximetry 100 11/17/22 07:32 Oxygen Delivery Room Air 11/17/22 07:32 Temperature 37.2 C 11/17/22 08:56 Pulse Rate 86 11/17/22 08:56 Respiratory Rate 21 H 11/17/22 08:56 Blood Pressure 113/82 11/17/22 08:56 Pulse Oximetry 99 11/17/22 08:56 Oxygen Delivery Room Air 0
[2022-11-17] MEDS: SODIUM CHLORIDE 0.9% IV 1,000 ML 999 ML IV CONT (08:08)
[2022-11-17] MEDS: metroNIDAZOLE 250 MG TABLET 500 MG PO (08:08)
[2022-11-17] MEDS: ONDANSETRON INJ 4 MG/2 ML VIAL IV PUSH (08:09)
[2022-11-17] MEDS: MORPHINE SULFATE (*CRX) 2 MG/ML INJ IV PUSH (08:09)
[2022-11-17 08:11] LABS: Basophils Absolute Auto 0.1 K/mm3 (0.0-0.1); Basophils Percent Auto 0.5 % (0.2-1.2); Eosinophils Absolute Auto 0.1 K/mm3 (0-0.3); Eosinophils Percent Auto 1.2 % (0-4.4); Hematocrit 38.9 % (42.0-52.0); Hemoglobin 11.7 g/dL (14.0-18.0); Immature Granulocyte Absolute 0.04 K/mm3 (0.00-0.031); Immature Granulocyte Percent A 0.4 % (0-0.5); Lymphocytes Absolute Auto 2.29 K/mm3 (0.9-3.2); Lymphocytes Percent Auto 20.3 % (18.3-44.2); Mean Corpuscular HGB Conc 30.1 g/dl (32-36); Mean Corpuscular Hemoglobin 27.3 pg (26-34); Mean Corpuscular Volume 90.9 fl (80-100); Mean Platelet Volume 10.4 fl (7.4-10.4); Monocytes Absolute Auto 0.8 K/mm3 (0.1-0.6); Monocytes Percent Auto 6.9 % (2.6-8.5); Neutrophils Percent Auto 70.7 % (45.5-73.1); Platelet Count Result 149 k/mm3 (150-375); Red Blood Count 4.28 M/mm3 (4.6-6.20); Red Cell Distribution Width 16.3 % (11.5-14.5); White Blood Count 11.3 K/mm3 (4.5-10.0)
[2022-11-17 08:21] LABS: INR 1.1; Prothrombin Time 13.5 Seconds (11.1-14.7)
[2022-11-17 08:22] LABS: Lactic Acid Reflex 0.7 mmol/L (0.7-2.0); Partial Thromboplastin Time 26.6 SECONDS (22.3-36.8)
[2022-11-17 08:23] LABS: Alanine Aminotransferase 16 U/L (6-50); Albumin Level 3.5 g/dL (3.5-5.1); Alkaline Phosphatase 87 U/L (38-126); Anion Gap 0 mmol/L (8-16); Aspartate Amino Transferase 26 U/L (17-59); Bilirubin,Total 0.8 mg/dL (0.2-1.3); Blood Urea Nitrogen 20 mg/dL (9-20); Calcium 8.5 mg/dL (8.4-10.2); Carbon Dioxide 35 mmol/L (22-30); Chloride 102 mmol/L (98-107); Estimated CRCL calculation 60 ml/min; Estimated Glomerular Filt Rate > 60; Glucose 88 mg/dL (65-110); Potassium 3.8 mmol/L (3.4-5.0); Sodium 137 mmol/L (137-145)
[2022-11-17] MEDS: VANCOMYCIN ORAL 125 MG/2.5 ML SYRUP PO (08:55)
[2022-11-17 08:56] VITALS: BP 113/82; PULSE 86; RESP 21; TEMP 37.2; O2SAT 99
[2022-11-17 11:48] VITALS: BP 121/81; PULSE 91; RESP 22; O2SAT 99
== END 2022-11-17 12:10 ==
PROVIDERS: Emergency Provider Emergency Medicine
DX: K92.2 Gastrointestinal hemorrhage, unspecified (principal); R19.7 Diarrhea, unspecified; J44.9 Chronic obstructive pulmonary disease, unspecified; J96.11 Chronic respiratory failure with hypoxia; I50.9 Heart failure, unspecified; I11.0 Hypertensive heart disease with heart failure; F03.90 Unspecified dementia, unspecified severity, without behavioral disturbance, psychotic disturbance, mood disturbance, and anxiety; E78.5 Hyperlipidemia, unspecified; Z99.81 Dependence on supplemental oxygen; Z66 Do not resuscitate; Z87.891 Personal history of nicotine dependence
CPT/HCPCS: 36415; 80053; 83605; 83735; 85025; 85610; 85730; 86850; 86880; 86900; 86901; 86902; 96361; 96374; 96375; 99284; A9270; J2270; J2405; J7030

== ENCOUNTER 2022-11-19 08:46 | Outpatient (CLI) | payer MEDICARE, SELFPAY ==
[2022-11-19 13:08] LABS: Toxigenic C. Diff POSITIVE (NEGATIVE)
== END 2022-11-19 08:47 | disposition home or self-care (01) ==
PROVIDERS: Visit Provider Emergency Medicine
DX: Z11.2 Encounter for screening for other bacterial diseases (principal)
CPT/HCPCS: 87493

== ENCOUNTER 2022-12-25 12:57 | Inpatient (IN) | payer MEDICARE, SELFPAY ==
[2022-12-25] VITALS (46 sets, daily range): BP systolic 75–132; BP diastolic 51–103; PULSE 88–156; RESP 14–28; TEMP 35.8–37.1; O2SAT 91–100; BMI 25.8
--- NOTE | ~2022-12-25 | CT_ITS ---
EXAMINATION: CT brain wo con DATE: 12/25/2022 14:33 INDICATION: Altered mental status TECHNIQUE: Computed tomography (CT) of the head was performed without intravenous contrast. Sagittal and coronal reconstructions were performed. The mA was adjusted according to patient size. Iterative reconstruction technique was employed. The dose-length product was 1513.33 mGy-cm. COMPARISON: None FINDINGS: Evaluation mildly limited by streak artifact on both initial and to lesser degree the repeated imagin g. 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 No acute intracranial hemorrhage, acute infarction o r abnormal extra axial fluid collection. There is mild scattered white matter hypoattenuation consist ent with chronic small vessel ischemic disease. Symmetric prominence of the sulci consistent with mil d age-appropriate diffuse cerebral volume loss. Ventricles are normal and symmetric. No mass/mass ef fect. Changes of bilateral intraocular lens replacement. The orbits, paranasal sinuses and mastoid ai r cells are normal. IMPRESSION: 1. 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 No acute intracranial process. 2. Age-related changes including mild diffuse volume loss and mild scattered white matter hypoattenua tion consistent with chronic small vessel ischemic disease. Reviewed, dictated and finalized at location A. IMPRESSION: 1. 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 No acute intracranial process. 2. Age-related changes including mild diffuse volume loss and mild scattered wh ite matter hypoattenuation consistent with chronic small vessel ischemic diseas e.
--- NOTE | ~2022-12-25 | XR_ITS ---
EXAMINATION: XR chest 1V portable DATE: 12/25/2022 19:15 INDICATION: Pulmonary edema TECHNIQUE: frontal view of the chest was obtained. COMPARISON: Chest radiograph dated 10/23/[address] dated 12/25/22 FINDINGS: Emphysema with scattered regions of increased lucency and architectural distortion most prominent in the lower lung zones. A few small scattered calcified pulmonary nodules along with calcified hilar an d mediastinal lymph nodes consistent with old granulomatous disease. No other airspace opacities, pul monary edema, pleural effusion or pneumothorax. The cardiomediastinal silhouette is within normal patterson its for AP technique. IMPRESSION: 1. Emphysema. No acute cardiopulmonary disease. Reviewed, dictated and finalized at location A.
--- NOTE | ~2022-12-25 | CT_ITS ---
EXAMINATION: CT chest abdomen pelvis wo con DATE: 12/25/2022 14:33 INDICATION: Abdominal pain and cough TECHNIQUE: Computed tomography (CT) of the chest, abdomen, and pelvis was performed without intraveno us contrast. Automated exposure control and iterative reconstruction technique were employed. The dos e-length product was 1278.57 mGy-cm. COMPARISON: Chest CT dated 10/22/2022 FINDINGS: CHEST CT: Moderate lower lung predominant emphysema. A few small calcified pulmonary nodules along with calcifi ed bilateral hilar and mediastinal lymph nodes consistent with old granulomatous disease. No pneumoni a, pulmonary edema or pleural effusion. Small linear band of mucus in the trachea. There is a flatten ing of the main stem and central lobar bronchi suggesting combination of bronchomalacia and expirator y phase of imaging. Heart size is normal. Atherosclerotic coronary artery calcific lesions. No perica rdial effusion. Fusiform ascending thoracic aortic aneurysm measuring up to 4.6 cm maximal diameter. No pathologically enlarged abdominal or pelvic lymphadenopathy. Small amount of fluid in the distal esophagus. Mild thoracic spondylosis. ABDOMEN/PELVIS CT: Diffuse colonic wall thickening consistent with colitis. No pneumatosis or free intraperitoneal gas. Superimposed moderate scattered diverticulosis. Appendix is normal. Short segment of nonobstructed sm all bowel extends into a small umbilical hernia. Again seen are few small low-attenuation hepatic cys ts. Multiple splenic calcifications including within 3 small spleen is only caudal margin of the sple en which are consistent with old granulomatous disease. Gallbladder, pancreas, bilateral adrenal glan ds and right kidney are normal. Again seen is a 2.1 cm exophytic left renal cyst. Small amount of asc ites primarily in the upper abdomen. No abscess. Mild prostatomegaly. Decompressed bladder is unremar kable. Bilateral small fat-containing inguinal hernias. Mild to moderate degenerative skeletal change s in the lumbar spine and pelvis. IMPRESSION: 1. Pancolitis which could be infectious, inflammatory or ischemic in etiology. 2. Small amount of likely reactive ascites. No abscess or free intraperitoneal gas. 3. Moderate emphysema and bronchomalacia. 4. 4.6 cm fusiform ascending thoracic aortic aneurysm. 5. Short segment of nonobstructed small bowel within a small umbilical hernia and lateral small fat-c ontaining inguinal hernias. Reviewed, dictated and finalized at location A. IMPRESSION: 1. Pancolitis which could be infectious, inflammatory or ischemic in etiology. 2. Small amount of likely reactive ascites. No abscess or free intraperitoneal gas. 3. Moderate emphysema and bronchomalacia. 4. 4.6 cm fusiform ascending thoracic aortic aneurysm. 5. Short segment of nonobstructed small bowel within a small umbilical hernia a nd lateral small fat-containing inguinal hernias.
--- NOTE | 2022-12-25 13:03 | ECG_ITS ---
Measurements Intervals [place] Rate: 88 P: 74 NC: 161 QRS: -79 QRSD: 81 T: 76 QT: 349 QTc: 424 Interpretive Statements SINUS RHYTHM LOW QRS VOLTAGE [QRS DEFLECTION < 0.5/1.0 mV IN LIMB/CHEST LEADS] INFERIOR MYOCARDIAL INFARCTION , PROBABLY OLD POOR R-WAVE PROGRESSION, CANNOT RULE OUT OLD aNTEROLATERAL MYOCARDIAL INFARCTION COMPARED TO ECG 10/22/2022 15:20:35 SINUS RHYTHM NOW PRESENT ANTERIOR r-WAVE PROGRESSION IS WORSE. Electronically Signed On 12-25-2022 22:18:53 CDT by Phoebe Earl M.D.
--- NOTE | 2022-12-25 13:05 | ED.AMS ---
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 Patient is coming from a nursing facility. He was apparently in his baseline state of health earlier this morning and then he was found in a prone position on his floor approximately an hour ago. EMS was called and found him to have agonal respirations with an O2 sat in the 50s. They BVM'ed him and his mental status slowly improved until he became combative. Patient is unable to provide much history due to altered mental status. Patient's daughter is at bedside and she states that she saw him earlier this morning. States that he has not been doing well lately. States he has been treated for C. difficile since September but the Vanco has not been working so he supposed to switch to fidaxomicin today. States his CODE STATUS is DNR/DNI but they are agreeable with IV fluids, antibiotics. Related Data Home Medications Medication Instructions Recorded Confirmed allopurinol 100 mg tablet 50 mg PO DAILY 10/22/22 12/25/22 arformoterol 15 mcg/2 mL solution 15 mcg inhalation TID 10/22/22 12/25/22 for nebulization (Brovana) budesonide 0.5 mg/2 mL suspension 0.5 mg inhalation BID 10/22/22 12/25/22 for nebulization cetirizine 10 mg tablet (Zyrtec) 10 mg PO DAILY 10/22/22 12/25/22 montelukast 10 mg tablet 10 mg PO DAILY 10/22/22 12/25/22 (Singulair) rosuvastatin 20 mg tablet (Crestor) 20 mg PO DAILY 10/22/22 12/25/22 Bacillus subtilis 1.5 billion 1 tablet PO BID 12/25/22 12/25/22 cell-inulin 1 gram chewable tablet (Prem Garrido) albuterol sulfate 90 mcg/actuation 2 puff inhalation QID PRN 12/25/22 12/25/22 aerosol inhaler Shortness Of Breath Or Wheezing aspirin 81 mg tablet,delayed 81 mg PO DAILY 12/25/22 12/25/22 release buspirone 5 mg tablet 5 mg PO BID 12/25/22 12/25/22 cholecalciferol (vitamin D3) 25 25 mcg PO DAILY 12/25/22 12/25/22 mcg (1,000 unit) capsule clotrimazole 1 % topical cream 1 applic topical BID 12/25/22 12/25/22 food supplemt, lactose-reduced 1 ea PO TID 12/25/22 12/25/22 (Ensure oral liquid) furosemide 40 mg tablet 40 mg PO DAILY 12/25/22 12/25/22 multivitamin with minerals-folic 1 tablet PO DAILY 12/25/22 12/25/22 acid 0.4 mg tablet potassium chloride 20 mEq 20 meq PO DAILY 12/25/22 12/25/22 tablet,extended release(part/cryst) Allergies Allergy/AdvReac Type Severity Reaction Status Date / Time No Known Allergies Allergy Verified 12/26/22 02:07 Review of Systems Review of Systems: ROS unobtainable: Yes unobtainable due to mental status [facility] Past Medical History Medical History (Updated 12/26/22 @ 21:23 by Katie Bustillo MD) Aortic aneurysm Chronic obstructive pulmonary disease Chronic respiratory failure with hypoxia, on home oxygen therapy Congestive heart failure Dementia Depression with anxiety Hemorrhoids Hyperlipidemia Hypertension ELVIA and COPD overlap syndrome Oxygen dependent Umbilical hernia Surgical History Surgical History (Updated 12/25/22 @ 19:47 by Reina Morrow NP) H/O hemorrhoidectomy History of arthroscopic knee surgery Family History Family History Father Lung cancer Mother Liver cancer Colon cancer Sibling Coronary artery disease Social History Social History (Updated 12/25/22 @ 22:48 by Reina Morrow NP) Social History: He resides at [facility] . He had 2 children but his son killed as a crime prevention police officer. He is . Surrogate medical decision maker: Fátima Osman, daughter. Code status: dnr./DNI Smoking packs per day: 2 Smoking cigarettes per day: 40.0 Years smoked: 40 Smoking pack-years: 80.00 Smok
[2022-12-25] MEDS: SODIUM CHLORIDE 0.9% IV 1,000 ML 999 ML IV CONT (13:14)
[2022-12-25 13:18] LABS: Hematocrit 39.8 % (42.0-52.0); Hemoglobin 12.5 g/dL (14.0-18.0); Mean Corpuscular HGB Conc 31.4 g/dl (32-36); Mean Corpuscular Hemoglobin 27.7 pg (26-34); Mean Corpuscular Volume 88.2 fl (80-100); Mean Platelet Volume 10.6 fl (7.4-10.4); Platelet Count Result 281 k/mm3 (150-375); Red Blood Count 4.51 M/mm3 (4.6-6.20); Red Cell Distribution Width 14.9 % (11.5-14.5)
[2022-12-25 13:28] LABS: INR 1.7; Partial Thromboplastin Time 30.6 SECONDS (22.3-36.8); Prothrombin Time 19.6 Seconds (11.1-14.7)
[2022-12-25 13:38] LABS: White Blood Count 66.7 K/mm3 (4.5-10.0)
[2022-12-25 13:41] LABS: Band Neutrophils Percent 6 % (0-6); Eosinophils Absolute Manual 0.66 K/mm3 (0.02-0.5); Eosinophils Percent Manual 1 % (0-4); Lymphocytes Absolute Manual 1.33 K/mm3 (1.1-4.5); Lymphocytes Percent Manual 2 % (18-44); Monocytes Percent Manual 3 % (3-9); Neutrophils Absolute Manual 62.69 K/mm3 (1.3-6.7); Neutrophils Percent Manual 88 % (46-73); Platelet Estimate Adequate (Adequate); Total Cells Counted 100
[2022-12-25 13:42] LABS: Schistocytes None Seen (NORMAL)
[2022-12-25 13:47] LABS: Lactic Acid Reflex 4.9 mmol/L (0.7-2.0); NT Pro B Type Natriuretic Pept 3900 pg/mL (19.9-100); Troponin I 0.015 ng/mL (0.000-0.034)
[2022-12-25 13:48] LABS: Alanine Aminotransferase 56 U/L (6-50); Albumin Level 2.7 g/dL (3.5-5.1); Alkaline Phosphatase 135 U/L (38-126); Anion Gap 18 mmol/L (8-16); Aspartate Amino Transferase 197 U/L (17-59); Bilirubin,Total 0.6 mg/dL (0.2-1.3); Blood Urea Nitrogen 72 mg/dL (9-20); Calcium 7.2 mg/dL (8.4-10.2); Carbon Dioxide 19 mmol/L (22-30); Chloride 89 mmol/L (98-107); Estimated CRCL calculation 13 ml/min; Estimated Glomerular Filt Rate 11; Glucose 121 mg/dL (65-110); Lipase 251 U/L (23-300); Magnesium 3.5 mg/dL (1.6-2.3); Sodium 126 mmol/L (137-145)
[2022-12-25] MEDS: DEXTROSE 50% 25 GM/50 ML SYRINGE IV PUSH (14:36)
[2022-12-25] MEDS: LACTATED RINGERS 1,000 ML 999 ML IV CONT (14:36)
[2022-12-25] MEDS: INSULIN HUMAN REGULAR (*BKC) 100 UNITS/ML 10 UNITS IV PUSH (14:36)
[2022-12-25] MEDS: SODIUM BICARBONATE 8.4% 50 MEQ/50 ML SYRINGE IV PUSH (14:36)
[2022-12-25] MEDS: FIDAXOMICIN 200 MG TABLET PO (14:37)
[2022-12-25] MEDS: IPRATROPIUM BR 0.02% INH SOLN 0.5 MG/2.5 ML VIAL INHALATION (14:51)
[2022-12-25] MEDS: LEVALBUTEROL NEB 1.25 MG/3 ML INHALATION ×3 (14:51→18:02)
[2022-12-25 14:54] LABS: Influenza A QL RT-PCR Negative (Negative); Influenza B QL RT-PCR Negative (Negative); SARS-CoV-2 RNA PCR Negative
[2022-12-25] MEDS: CEFEPIME 1 GM/NS 50 ML 1 GM/50 ML BAG IVPB (15:05)
[2022-12-25 15:13] LABS: Base Excess ABG -5.9 mEq/l (+/-2.0); Fractional Inspired Oxygen 100 %; HCO3 ABG 22.8 mEq/l (22.0-26.0); Oxygen Content ABG 16.7 %vol (16.0-22.0); Oxygen Saturation ABG 98.7 % (95.0-100.0); Oxyhemoglobin 97.8 % THb (90.0-100.0); PO2 ABG 169.2 mmHg (80.0-100.0); PO2 FiO2 Ratio Arterial Blood 1.69 %; Total Hemoglobin 11.9 g/dL (12.0-18.0); pH ABG 7.192 (7.350-7.450)
[2022-12-25 15:14] LABS: Device NON-REBREATHER MASK; Modified Allen's Test Unable to perform; PCO2 ABG 60.8 mmHg (35.0-45.0); Site Drawn LEFT RADIAL
--- NOTE | 2022-12-25 15:26 | PC.NURSE ---
Unable to obtain UA, pt has a few drops of urine when straight cathed.
[2022-12-25 16:16] LABS: Reflex Lactic Acid Yes or No Add Lactic
--- NOTE | 2022-12-25 17:07 | PCRCNOTE ---
At 1515 on 12/25/2022, RT notified Dr. Bustillo of ABG results: pH 7.192, 60.8, 169.2, 22.8. Patient was on 15L NRBM during time of ABG draw. RT suggested BIPAP to Dr. REY stated she didn't want BIPAP at this time due to aspiration precautions.
[2022-12-25 17:48] LABS: Alveolar/Arterial O2 Gradient 63.5 mmHg; Base Excess ABG -5.6 mEq/l (+/-2.0); Fractional Inspired Oxygen 32 %; HCO3 ABG 21.9 mEq/l (22.0-26.0); Oxygen Content ABG 17.3 %vol (16.0-22.0); Oxygen Saturation ABG 96.9 % (95.0-100.0); Oxyhemoglobin 96.2 % THb (90.0-100.0); PCO2 ABG 51.3 mmHg (35.0-45.0); PO2 ABG 104.6 mmHg (80.0-100.0); PO2 FiO2 Ratio Arterial Blood 3.27 %; Total Hemoglobin 12.7 g/dL (12.0-18.0)
[2022-12-25 17:50] LABS: Device NASAL CANNULA; Site Drawn LEFT BRACHIAL; pH ABG 7.249 (7.350-7.450)
--- NOTE | 2022-12-25 18:00 | PCRCNOTE ---
On 12/25/2022 at 1748. RT notified Katie Bustillo MD of ABG results: pH 7.249, PCO2 51.3, PO2 104.6, HCO2 21.9. stated she still does not want a BIPAP at this time due to aspiration precautions.
--- NOTE | 2022-12-25 18:02 | PC.NURSE ---
Still has no urine output. Small amount loose green stool in diaper.
--- NOTE | 2022-12-25 19:07 | PC.NURSE ---
Pt with increased wheezing and agitation. ERP aware.
--- NOTE | 2022-12-25 19:44 | PM.IMHP ---
H&P: HPI History of Present Illness Date/Time: 12/25/22 19:44 Chief Complaint: Altered mental status Narrative: This is a 72-year-old male patient who is from [facility]. He has a history of COPD and is chronically on oxygen at 2 L per nasal cannula. The patient also has recurrent C diff is tile and had been on oral vancomycin. However the patient was not getting any better and was supposed to get changed to Dificid. The patient was at his baseline earlier this morning and then he was found in a prone position on his floor approximately 1 hour prior to arrival in the emergency room here. EMS was called and the patient was found have agonal respirations with an oxygen level in the 50s. EMS used the Ambu bag on the patient and the patient became combative. The daughter is at the bedside and she stated that the patient is a DNR but would allow a BiPAP if necessary. The patient has had C diff since September. The daughter agrees with IV antibiotics and fluids. His white count is noted to be 66.7. His H&H is 12.5 and 39.8. His pH was initially 7.19 to in came up to 7.249. CO2 was 60.8 and then 51.3. Sodium was 126 and potassium was 6.0. BUN is 72 and creatinine 5.2. Lactic was initially 4.9 and then came down to 2.0. AST is 197, ALT is 56 and alkaline phosphatase 135. BNP is 3900. The patient was given IV fluids, Dificid, cefepime, vancomycin, lactated Ringer's, sodium bicarb, D50, regular insulin, and a Xopenex treatment. The patient is being admitted to inpatient status on date of service of 12/25/2022. Review of Systems Review of Systems: All systems reviewed & are unremarkable except as noted in HPI and below Constitutional: Constitutional: Reports as per HPI and Reports no additional constitutional complaints Eyes: Eyes: Reports as per HPI and Reports no additional eye complaints ENT: Reports system reviewed and no additional complaints, except as documented and Reports Normal hearing present Cardiovascular: Cardiovascular: Reports no additional cardiovascular complaints Respiratory: Respiratory: Reports no additional respiratory complaints and Reports no additional respiratory complaints Gastrointestinal: Gastrointestinal: Reports as per HPI and Reports no additional gastrointestinal complaints Musculoskeletal: Musculoskeletal: Reports no additional musculoskeletal complaints Integumentary/Breasts: Skin/Breast: Reports system reviewed and no additional complaints, except as docu and Reports as per HPI Neurologic: Reports system reviewed and no additional complaints, except as documented, Reports as per HPI and Reports Normal hearing present Psychiatric: Psychiatric: Reports no additional psychiatric complaints and Reports as per HPI Endocrine: Endocrine: Reports no additional endocrine complaints Hematologic/Lymphatic: Hematologic/Lymphatic: Reports no additional hematologic/lymphatic complaints Allergic/Immunologic: Allergic/Immunologic: Reports no additional allergic/immunologic complaints [facility] Past Medical History Medical History (Updated 12/25/22 @ 23:05 by Reina Morrow NP) Aortic aneurysm Chronic obstructive pulmonary disease Chronic respiratory failure with hypoxia, on home oxygen therapy Congestive heart failure Dementia Depression with anxiety Hemorrhoids Hyperlipidemia Hypertension ELVIA and COPD overlap syndrome Oxygen dependent Umbilical hernia Surgical History Surgical History (Updated 12/25/22 @ 19:47 by Reina Morrow NP) H/O hemorrhoidectomy History of arthroscopic knee surgery Family History Family History Father Lung cancer Mother Liver cancer Colon cancer Social History Social History (Updated 12/25/22 @ 22:48 by Reina Morrow NP) Social History: [facility] . He had 2 children but his son killed as a wildlife officer. He is . Surrogate medical decision ma
--- NOTE | 2022-12-25 21:13 | ADMGEN ---
This patient, Oliver Abad, was admitted to IMU Room 232-01 on 12/25/22 at 2035. Patient/family oriented to hospital policies and general routines including ID bracelet, bed and alarms, visiting hours, pain management, procedures, bathroom and other care routines, personal items, smoking policy, room service/diet, and visiting hours. Pt unable to report H&P due to AMS. No family present at time of admission. Information obtained from medical records. Information on how to activate the Rapid Response Team has been discussed. Patient/Family are encouraged to report perceived risks to care and to ask questions if they do not understand what they are told or what they should do.
[2022-12-25] MEDS: metroNIDAZOLE 500 MG/ISO 100ML 500 MG/100 ML BAG 100 MG IVPB (21:17)
--- NOTE | 2022-12-25 22:43 | PCRCNOTE ---
Window of time for administration has passed. See next scheduled administration.
--- NOTE | 2022-12-25 23:28 | PCRCNOTE ---
pt is refusing to wear BIPAP. RT informed.
[2022-12-26] VITALS: PULSE 91; PULSE 99; RESP 20; O2SAT 98
[2022-12-26] MEDS: SODIUM CHLORIDE 0.9% IV 1,000 ML 50 ML IV CONT (00:30)
[2022-12-26] MEDS: FIDAXOMICIN 200 MG TABLET PO (00:31)
[2022-12-26] MEDS: methylPREDNISolone SOD SUCC 125 MG VIAL 60 MG IV PUSH (00:31)
[2022-12-26] MEDS: SCOPOLAMINE 1.5 MG PATCH TRANSDERM (00:32)
[2022-12-26 00:35] LABS: Anion Gap 9 mmol/L (8-16); Blood Urea Nitrogen 77 mg/dL (9-20); Calcium 6.5 mg/dL (8.4-10.2); Carbon Dioxide 26 mmol/L (22-30); Chloride 92 mmol/L (98-107); Estimated CRCL calculation 13 ml/min; Estimated Glomerular Filt Rate 11; Glucose 134 mg/dL (65-110); Potassium 5.6 mmol/L (3.4-5.0); Sodium 127 mmol/L (137-145)
[2022-12-26 02:00] VITALS: PULSE 88
[2022-12-26] MEDS: IPRATROPIUM BR 0.02% INH SOLN 0.5 MG/2.5 ML VIAL INHALATION (02:29)
[2022-12-26] MEDS: LEVALBUTEROL NEB 1.25 MG/3 ML 0.63 MG INHALATION (02:29)
[2022-12-26 02:46] VITALS: PULSE 84; RESP 18
[2022-12-26 03:01] VITALS: O2SAT 91
[2022-12-26 03:21] VITALS: PULSE 32; PULSE 62
[2022-12-26 03:25] VITALS: PULSE 0
--- NOTE | 2022-12-26 04:39 | PC.NURSE ---
12/26/22 0321-Pt noted to be in a junctional rhythm w/HR of 62 bpm. Upon arrival to room, Pt assessed and found unresponsive with agonal respirations. Femoral pulse palpated. account resolution specialist showing bradycardia w/HR 32 bpm, then decreasing to 22bpm. Pt DNR/DNI. 0323-Pt's daughter, Fátima Osman (POA) called and updated with Pt's condition. Daughter states that she will come up to the hospital. 0323-Pt's heart rate decreasing to 22 bpm with a faint femoral pulse able to be palpated. 0325-Pt noted to be asystole on repeat photocomposing machine operator. No pulse palpated, No respirations noted. No apical heart beat heard with auscultation x2 RN's. 0335-Dr. Jackson notified of Pt's .
--- NOTE | 2023-01-19 11:33 | PM.DDS ---
Discharge Summary Date and Time Date of : 12/26/22 Time of : 03:25 Provider Pronounced By: Cherelle Hollis RN and Joan Ramirez RN Probable Cause of Probable Cause of : severe C diff colitis Summary Hospital Course: Altered mental status Narrative: This is a 72-year-old male patient who is from [facility].? He has a history of COPD and is chronically on oxygen at 2 L per nasal cannula.? The patient also has recurrent C diff is tile and had been on oral vancomycin.? However the patient was not getting any better and was supposed to get changed to Dificid.? The patient was at his baseline earlier this morning and then he was found in a prone position on his floor approximately 1 hour prior to arrival in the emergency room here.? EMS was called and the patient was found have agonal respirations with an oxygen level in the 50s.? EMS used the Ambu bag on the patient and the patient became combative.? The daughter is at the bedside and she stated that the patient is a DNR but would allow a BiPAP if necessary.? The patient has had C diff since September.? The daughter agrees with IV antibiotics and fluids.? His white count is noted to be 66.7.? His H&H is 12.5 and 39.8.? His pH was initially 7.19 to in came up to 7.249.? CO2 was 60.8 and then 51.3.? Sodium was 126 and potassium was 6.0.? BUN is 72 and creatinine 5.2.? Lactic was initially 4.9 and then came down to 2.0.? AST is 197, ALT is 56 and alkaline phosphatase 135.? BNP is 3900.? The patient was given IV fluids, Dificid, cefepime, vancomycin, lactated Ringer's, sodium bicarb, D50, regular insulin, and a Xopenex treatment.? The patient is being admitted to inpatient status on date of service of 12/25/2022. Patient early hours of 12/26/2022 Additional Data Confirmation of as documented by pronouncing clinician: Pupillary Reflex, Palpable Pulses, Response to Stimuli, Heart Tones and Breath Sounds Name of Provider Notified: Dr Jackson Time Provider Notified: 03:33 Provider Requests Autopsy: No Chief Executive Or Managing Director Notified: Yes Date [facility] Notified of : 12/26/22 Time [facility] Notified of : 03:50
== END 2022-12-26 03:25 | disposition expired | DRG 872 ==
LOC: ANHED 13:26 → ANHIMU 17:35
PROVIDERS: Nurse Practitioner; Admitting Provider Family Medicine; Emergency Provider Emergency Medicine; Visit Provider Family Medicine
DX: A41.9 Sepsis, unspecified organism (principal); A04.72 Enterocolitis due to Clostridium difficile, not specified as recurrent; G93.40 Encephalopathy, unspecified; N17.9 Acute kidney failure, unspecified; J96.11 Chronic respiratory failure with hypoxia; I11.0 Hypertensive heart disease with heart failure; I50.9 Heart failure, unspecified; I95.9 Hypotension, unspecified; E78.2 Mixed hyperlipidemia; D50.8 Other iron deficiency anemias; J44.9 Chronic obstructive pulmonary disease, unspecified; F03.90 Unspecified dementia, unspecified severity, without behavioral disturbance, psychotic disturbance, mood disturbance, and anxiety; G47.33 Obstructive sleep apnea (adult) (pediatric); I71.9 Aortic aneurysm of unspecified site, without rupture; K42.9 Umbilical hernia without obstruction or gangrene; N28.9 Disorder of kidney and ureter, unspecified; Z66 Do not resuscitate; Z99.81 Dependence on supplemental oxygen; Z20.822 Contact with and (suspected) exposure to COVID-19
CPT/HCPCS: 36415; 36600; 70450; 71045; 71250; 74176; 80048; 80053; 82805; 83605; 83690; 83735; 83880; 84484; 85025; 85610; 85730; 87040; 87081; 87636; 93005; 94640; 96361; 96365; 96368; 96375; 99285; A9270; J0692; J1815; J2930; J3370; J7030; J7120